=== PATIENT | female | born 1995 | race Caucasian/White ===

== ENCOUNTER 2018-09-06 15:09 | Inpatient (IN) | payer OTHER ==
[2018-09-06] MEDS ORDERED: IBUPROFEN 600 MG TAB PO (17:00)
[2018-09-06] MEDS ORDERED: MISOPROSTOL 200 MCG TAB PR (17:00)
[2018-09-06] MEDS ORDERED: LIDOCAINE 1% (MPF) 30 ML INJ INJ (17:00)
[2018-09-06] MEDS ORDERED: BUTORPHANOL 2 MG INJ IV ×2 (17:00)
[2018-09-06] MEDS ORDERED: CARBOPROST 250 MCG INJ IM (17:00)
[2018-09-06] MEDS ORDERED: OXYTOCIN 30 UNITS/LR 500 ML IV (17:00)
[2018-09-06 17:07] LABS: ADD MAN DIFF? NO
[2018-09-06 17:09] LABS: BASOPHILS % 0.2 % (0.0-2.0); EOSINOPHILS % 0.2 % (0.0-7.0); HEMATOCRIT 42.3 % (37.0-47.0); HEMOGLOBIN 13.9 g/dl (12.0-16.0); LYMPHOCYTES # 2.1 10^3/ul (0.8-2.9); LYMPHOCYTES % 18.1 % (15.0-51.0); MEAN CORPUSCULAR HEMOGLOBIN 28.6 pg (29.0-33.0); MEAN CORPUSCULAR HGB CONC 32.9 g/dl (32.0-37.0); MEAN PLATELET VOLUME 11.7 fl (7.4-10.4); NEUTROPHIL # 8.2 10^3/ul (1.6-7.5); NEUTROPHILS % 72.1 % (39.0-77.0); PLATELET COUNT 172 10^3/UL (140-415); RED BLOOD COUNT 4.86 10^6/ul (4.20-5.40); RED CELL DISTRIBUTION WIDTH 13.1 % (11.5-14.5)
[2018-09-06 17:09] LABS: WHITE BLOOD COUNT 11.3 10^3/ul (4.8-10.8)
[2018-09-06 17:29] LABS: INR 0.83; PROTIME 11.5 Sec (11.9-14.9); PT RATIO 0.9
[2018-09-06] MEDS: LACTATED RINGER'S 1,000 ML IV (17:29)
[2018-09-06 17:30] LABS: PARTIAL THROMBOPLASTIN TIME 26.8 Sec (23.0-35.0)
[2018-09-06 17:57] LABS: HEPATITIS B SURFACE ANTIGEN NEGATIVE (NEGATIVE)
[2018-09-06] MEDS: AMPICILLIN 2 GM/NS (PMX) 100 ML IV (18:14)
[2018-09-06] MEDS: MISOPROSTOL 50 MCG CAPSULE PO ×2 (18:34→22:14)
[2018-09-06] MEDS: AMPICILLIN 1 GM/NS (PMX) 50 ML IV (22:14)
[2018-09-07] MEDS: LACTATED RINGER'S 1,000 ML IV ×4 (00:01→15:14)
[2018-09-07] MEDS: AMPICILLIN 1 GM/NS (PMX) 50 ML IV ×5 (02:14→14:33)
[2018-09-07] MEDS: MISOPROSTOL 50 MCG CAPSULE PO (03:36)
[2018-09-07] MEDS: OXYTOCIN 30 UNITS/LR 500 ML IV ×4 (08:01→18:51)
[2018-09-07] MEDS: DEXTROSE 5%-LR 1,000 ML IV ×2 (08:51→16:30)
[2018-09-07] MEDS ORDERED: FENTAnyl 2MCG/ML-ROPIV 0.2% 100 ML (08:54)
[2018-09-07] MEDS ORDERED: DIPHENHYDRAMINE 50 MG INJ IV (09:00)
[2018-09-07] MEDS ORDERED: ONDANSETRON 4 MG INJ IV (09:00)
[2018-09-07] MEDS ORDERED: NALOXONE (0.4 MG/ML) INJ IV (09:00)
[2018-09-07] MEDS: FENTAnyl 2MCG/ML-ROPIV 0.2% 100 ML BAG EPI ×2 (09:38→14:51)
[2018-09-07] MEDS: MINERAL OIL LIGHT 10 ML VIAL TOP (15:37)
[2018-09-07] MEDS: METHYLERGONOVINE 0.2 MG INJ IM (16:57)
[2018-09-07] MEDS: LACTATED RINGER'S 1,000 ML IV* (18:13)
[2018-09-07] MEDS ORDERED: METHYLERGONOVINE 0.2 MG INJ IM (18:30)
[2018-09-07] MEDS ORDERED: ZOLPIDEM 5 MG TAB PO (18:30)
[2018-09-07] MEDS ORDERED: CARBOPROST 250 MCG INJ IM (18:30)
[2018-09-07] MEDS ORDERED: ACETAMINOPHEN 325 MG TAB PO (18:30)
[2018-09-07] MEDS: IBUPROFEN 800 MG TAB PO (18:30)
[2018-09-07] MEDS ORDERED: DIPHENHYDRAMINE 25 MG CAP PO (18:30)
[2018-09-07] MEDS ORDERED: OXYTOCIN 30 UNITS/LR 500 ML IV (18:30)
[2018-09-07] MEDS ORDERED: MISOPROSTOL 200 MCG TAB PR (18:30)
[2018-09-07] MEDS: WITCH HAZEL/GLYCERIN PAD PR (18:47)
[2018-09-07] MEDS: LANOLIN HPA 1 PKT TOP (18:48)
[2018-09-07] MEDS: BENZOCAINE 20% 56 ML SPRAY TOP (18:48)
[2018-09-07 19:22] LABS: RAPID PLASMA REAGIN NONREACTIVE (NR)
[2018-09-07] MEDS: HYDROCODONE/APAP (5/325) TAB PO (19:48)
[2018-09-08] MEDS: IBUPROFEN 800 MG TAB PO ×5 (00:26→23:51)
[2018-09-08] MEDS: LACTATED RINGER'S 1,000 ML IV* ×3 (02:13→18:13)
[2018-09-08 05:40] LABS: ADD MAN DIFF? NO
[2018-09-08 05:47] LABS: WHITE BLOOD COUNT 17.6 10^3/ul (4.8-10.8)
[2018-09-08 05:47] LABS: ABNORMAL IP MESSAGE 1; BASOPHILS % 0.2 % (0.0-2.0); EOSINOPHILS % 0.2 % (0.0-7.0); HEMATOCRIT 42.2 % (37.0-47.0); HEMOGLOBIN 13.5 g/dl (12.0-16.0); LYMPHOCYTES # 3.3 10^3/ul (0.8-2.9); LYMPHOCYTES % 18.5 % (15.0-51.0); MEAN CORPUSCULAR HEMOGLOBIN 28.6 pg (29.0-33.0); MEAN CORPUSCULAR VOLUME 89.4 fl (82.0-101.0); MEAN PLATELET VOLUME 11.8 fl (7.4-10.4); MONOCYTE # 1.9 10^3/ul (0.3-0.9); MONOCYTES % 10.9 % (0.0-11.0); NEUTROPHIL # 12.3 10^3/ul (1.6-7.5); NEUTROPHILS % 69.6 % (39.0-77.0); PLATELET COUNT 152 10^3/UL (140-415); RED BLOOD COUNT 4.72 10^6/ul (4.20-5.40); RED CELL DISTRIBUTION WIDTH 13.2 % (11.5-14.5)
[2018-09-08 05:53] LABS: POSITIVE DIFF @See below
[2018-09-08] MEDS: MAGNESIUM HYDROXIDE 30ML CUP PO (11:53)
[2018-09-08] MEDS: SENNA/DOCUSATE NA (8.6MG/50MG) TAB PO ×2 (11:54→21:42)
[2018-09-08] MEDS: BENZOCAINE 20% 56 ML SPRAY TOP (21:42)
[2018-09-08] MEDS: WITCH HAZEL/GLYCERIN PAD PR (21:43)
[2018-09-08] MEDS: DIPHTH/TET/ACEL PERTUSS (ADULT) 0.5 ML VIAL IM* (21:44)
[2018-09-08] MEDS: MEASLES,MUMPS,RUBELLA VACCINE INJ SC* (21:45)
[2018-09-09] MEDS: LACTATED RINGER'S 1,000 ML IV* ×2 (02:13→10:13)
[2018-09-09 05:27] LABS: ADD MAN DIFF? NO
[2018-09-09 05:31] LABS: BASOPHILS % 0.2 % (0.0-2.0); EOSINOPHILS # 0.1 10^3/ul (0.0-0.5); EOSINOPHILS % 1.1 % (0.0-7.0); HEMATOCRIT 32.7 % (37.0-47.0); HEMOGLOBIN 10.5 g/dl (12.0-16.0); LYMPHOCYTES # 2.7 10^3/ul (0.8-2.9); LYMPHOCYTES % 20.3 % (15.0-51.0); MEAN CORPUSCULAR HEMOGLOBIN 28.7 pg (29.0-33.0); MEAN CORPUSCULAR HGB CONC 32.1 g/dl (32.0-37.0); MEAN CORPUSCULAR VOLUME 89.3 fl (82.0-101.0); MEAN PLATELET VOLUME 12.3 fl (7.4-10.4); MONOCYTE # 1.2 10^3/ul (0.3-0.9); MONOCYTES % 9.3 % (0.0-11.0); NEUTROPHIL # 8.9 10^3/ul (1.6-7.5); NEUTROPHILS % 68.3 % (39.0-77.0); PLATELET COUNT 128 10^3/UL (140-415); RED BLOOD COUNT 3.66 10^6/ul (4.20-5.40); RED CELL DISTRIBUTION WIDTH 13.4 % (11.5-14.5)
[2018-09-09 05:31] LABS: WHITE BLOOD COUNT 13.1 10^3/ul (4.8-10.8)
[2018-09-09] MEDS: IBUPROFEN 800 MG TAB PO ×2 (05:33→12:46)
[2018-09-09] MEDS: VARICELLA VACCINE LIVE/PF 1,350 UNIT/0.5 ML ML SC* (09:00)
[2018-09-09] MEDS: BISACODYL 10 MG SUPP PR (09:00)
[2018-09-09] MEDS: SENNA/DOCUSATE NA (8.6MG/50MG) TAB PO (10:09)
== END 2018-09-09 18:15 | disposition home or self-care (01) | DRG 807 ==
LOC: OBT 15:09 → MS1 09-07 18:52 → L-D 15:10 → OBT 16:13 → L-D 16:15
PROVIDERS: Obstetrics & Gynecology
PROC: 10E0XZZ Delivery of Products of Conception, External Approach (ICD-10-PCS; principal; 2018-09-07)
DX: O41.03X0 Oligohydramnios, third trimester, not applicable or unspecified (principal); O70.0 First degree perineal laceration during delivery; Z37.0 Single live birth; Z3A.40 40 weeks gestation of pregnancy
CPT/HCPCS: 62322; 76815; 82962; 85025; 85610; 85730; 86592; 86850; 86900; 86901; 87340; 90715; 90716